=== PATIENT | female | born 1985 | race African-American/Black ===

== ENCOUNTER 2017-12-27 14:51 | Emergency (ER) | payer SELFPAY ==
[~2017-12-27] VITALS: Ht 157.5 cm; Wt 68.0 kg
[2017-12-27] MEDS ORDERED: HYDROCODONE/APAP 7.5MG-325MG 1 EA TAB PO PRN (15:15)
[2017-12-27] MEDS ORDERED: CYCLOBENZAPRINE HCL 10 MG TAB PO ONE (15:15)
[2017-12-27 16:00] VITALS: BP 145/107
== END 2017-12-27 16:48 | disposition home or self-care (01) ==
LOC: ER 14:51
DX: M54.5 Low back pain (principal); S39.012A Strain of muscle, fascia and tendon of lower back, initial encounter; I10 Essential (primary) hypertension; D64.9 Anemia, unspecified
CPT/HCPCS: 99283

== ENCOUNTER 2018-08-15 19:07 | Emergency (ER) | payer SELFPAY ==
[~2018-08-15] VITALS: Ht 157.5 cm; Wt 68.0 kg
--- OUTSIDE RECORDS SUMMARY | 2018-08-23 12:09 | XMS REPORT | Summary of Care ---
Author Author LEO PROCTOR M.D. Organization Unknown Address Unknown Phone Unavailable Care Team Providers Care Reports Analyst Name Role Phone LEO PROCTOR M.D. Unavailable Unavailable Unavailable Unavailable Functional Status Name Dates Details Functional status health issues are not documented Status: Name Dates Details Cognitive status health issues are not documented Status: Problems Name Dates Details (V22.2, Z34.90) Status: Active Heart murmur (785.2, R01.1) Status: Active Encounter for supervision of normal (V22.1, Z34.90) Status: Active Urinary tract infection (599.0, N39.0) Status: Active Anemia (285.9, D64.9) Status: Active Medications Name Dates Details Nitrofurantoin Macrocrystal 100 MG Oral Capsule TAKE 1 CAPSULE EVERY 12 HOURS DAILY. Quantity: 14 HITESH M.D., LEO * Start : 11-Aug-2018 Active Vitafol Gummies 3.33-0.333-34.8 MG Oral Tablet Chewable Take as instructed on bottle * Quantity: 90 Refills: 3 HITESH M.D., LEO * Start : 11-Aug-2018 Active Diclegis 10-10 MG Oral Tablet Delayed Release Take 1 tablet daily before bedtime; if necessary, you can take 1 tablet twice pe day, 1 in the morning, 1 at night * Quantity: 30 Refills: 1 HITESH M.D., LEO * Start : 11-Aug-2018 Active Ferralet 90 90-1 MG Oral Tablet TAKE 1 TABLET ONCE DAILY * Quantity: 30 Refills: 3 HITESH M.D., LEO * Start : 11-Aug-2018 Active Allergies and Adverse Reactions Name Dates Details Ibuprofen TABS (Allergy) Status: Active Procedures Procedure Dates Details ECG-12 Lead Date: 10-Aug-2018 . [facility] - Affirm VPIII (BV Panel) Date: 10-Aug-2018 [H] Hemoglobin Electrophoresis and Interpretation Date: 10-Aug-2018 [QH] [id number] DEHYDROGENASE, QUANT. Date: 10-Aug-2018 [[facility]] CULTURE, URINE, ROUTINE Date: 10-Aug-2018 . [facility] - PAP Date: 10-Aug-2018 Immunization Name Dates Details Immunizations not documented Social History Name Dates Details - Status: Name Dates Details Never smoker Vital Signs Date Test Result Details 10-Aug-20189:38 BP Systolic 116 mm[Hg] Status: BP Diastolic 77 mm[Hg] Status: Height 62 in Status: Weight 148.6 lb Status: Body Mass Index Calculated 27.18 kg/m2 Status: Body Surface Area Calculated 1.68 m2 Status: Heart Rate 102 /min Status: Results Date Description Value Details [id number] [QL] URINALYSIS, COMPLETE UA Turbidity Slight (Abnormal) Range: Clear UA Spec Grav 1.013 Range: <=1.030 UA pH 5.0 Range: 5.0-8.0 UA Protein Negative mg/dl Range: Negative UA Glucose Negative mg/dl Range: Negative UA Ketones Negative mg/dl Range: Negative UA Bili Negative Range: Negative UA Blood Negative Range: Negative UROBILINOGEN 4.0 mg/dl (Above high threshold) Range: 0.1-1.0 UA Nitrite Positive (Abnormal) Range: Negative UA Leuk Est Negative Range: Negative UA WBC 3 {/HPF} Range: 0-5 UA Bacteria Many {/HPF} (Abnormal) Range: None Seen UA Mucus Moderate {/LPF} (Abnormal) Range: None Seen UA Sq Epi Occasional {/LPF} Range: Few UA Color Didi [id number] [H] Obstetrics Panel (includes CBCw/Diff,RPR, HbsAg,RubIgG,Type and Screen) WBC 7.8 {K/CMM} Range: 3.7-10.4 RBC 3.62 {M/CMM} (Below low threshold) Range: 4.20-5.40 Hgb 10.9 g/dl (Below low threshold) Range: 12.0-16.0 Hct 31.9 % (Below low threshold) Range: 36.0-48.0 MCV 87.9 fL Range: 80.0-98.0 MCH 30.0 pg Range: 27.0-31.0 MCHC 34.1 g/dl Range: 32.0-36.0 RDW 15.6 % (Above high threshold) Range: 11.5-14.5 Platelet 226 {K/CMM} Range: 133-450 MPV 9.8 fL Range: 7.4-10.4 Segs 55.9 % Range: 45.0-75.0 Monocytes 5.6 % Range: 2.0-12.0 Lymphocytes 37.1 % Range: 20.0-40.0 Eosinophils 1.0 % Range: 0.0-4.0 Basophils 0.4 % Range: 0.0-1.0 Segs-Bands # 4.4 {K/CMM} Range: 1.5-8.1 Lymphocytes # 2.9 {K/CMM} Range: 1.0-5.5 Monocytes # 0.4 {K/CMM} Range: 0.0-0.8 Eosinophils # 0.1 {K/CMM} Range: 0.0-0.5 ABORH O POS AB Screen Negative Rubella IgG 40.2 {IU/ml} Range: >=10.0 Comments: Reference Range: Immune >=10 IU/mL Hep Bs Ag Negative Range: Negative [id number] [QH] HIV AB, HIV 1/2, EIA, WITH REFLEXES HIV Ag/Ab 4th Gen Negative Range: Negative Comments: HIV test results should be considered positive only when both the screening andthe confirmatory tests are positive. A negative confirmatory test in patientswith a positive screening test does not exclude HIV infection. If clincallywarranted, an HIV RNA quantitative test should be ordered. Plan of Care Name Dates Details Planned Observations Planned Goals not documented Planned Encounters Appointment; PHP ENGINEER, ROOM3 On: 07-Sep-2018 9:30 Appointment; LEO PROCTOR M.D. On: 07-Sep-2018 10:30 Interventions Provided Medication Changes* Diclegis 10-10 MG Oral Tablet Delayed Release - Start * Ferralet 90 90-1 MG Oral Tablet - Start * Nitrofurantoin Macrocrystal 100 MG Oral Capsule - Start * Vitafol Gummies 3.33-0.333-34.8 MG Oral Tablet Chewable - Start Instructions Name Dates Details Instructions not documented Encounters Appointment; LEO PROCTOR M.D. Encounter Diagnosis: Problem not documented On: 10-Aug-2018 9:00
--- OUTSIDE RECORDS SUMMARY | 2018-08-23 12:09 | XMS REPORT | Summary of Care ---
Author Organization Unknown Address Unknown Phone Unavailable Care Team Providers Care Alcoholic Counselor Name Role Phone [phone] PAMELLA Maldonado, Unknown PCP Unavailable Encounter BECKY Mathew(JOLIE) [id number] Date(s): 05/03/15 - 05/03/15 [facility] [address] [place] [address]- Discharge Diagnosis: IUP (intrauterine ), incidental Discharge Disposition: Home Physician Attending: Mauro Lemus MD Vital Signs Most recent to 1 2 oldest [Reference Range]: Height 160.02 cm (05/03/15 4:19 PM) Temperature Oral 98.3 DegF 98.0 DegF [96.4-99.1 DegF] (05/03/15 6:52 PM) (05/03/15 4:19 PM) Blood Pressure 111/72 mmHg 109/75 mmHg [90-140/60-90 mmHg] (05/03/15 6:52 PM) (05/03/15 4:19 PM) Respiratory Rate 18 BRMIN 17 BRMIN [14-20 BRMIN] (05/03/15 6:52 PM) (05/03/15 4:19 PM) Peripheral Pulse 67 bpm 93 bpm Rate [60-100 bpm] (05/03/15 6:52 PM) (05/03/15 4:19 PM) Weight 61.364 kg (05/03/15 4:19 PM) Body Mass Index 23.96 m2 (05/03/15 4:19 PM) Problem List Condition Effective Dates Status Health Status Informant Ectopic Resolved (Confirmed) Heart Active murmur(Confirmed) Hypotension(Confirme Active d) Sickle cell Active anemia(Confirmed) Allergies, Adverse Reactions, Alerts Substance Reaction Severity Status ibuprofen Active Medications ketOROLAC 30 mg, 1 mL, Route: IVP, Drug form: INJ, ONCE, Dosing Weight 61.364, kg, Priorit y: STAT, Start date: 05/03/15 18:26:00, Stop date: 05/03/15 18:26:00 Notes: (Same as:Toradol) IV bolus must be given >15 seconds. Give IM administration slowly and deeply into the muscle.Not for use > 4 days MEDICATION WASTE Product Size: 30 mgProduct Wasted: ___ mg Start Date: 05/03/15 Stop Date: 05/03/15 Status: Completed Saline Flush 0.9% 10 mL, Route: IVP, Drug Form: INJ, Dosing Weight 61.364, kg, PRN, PRN Line Flush , Start date: 05/03/15 17:01:00, Duration: 30 day, Stop date: 06/02/15 17:00:00 Notes: Same as: BD Posiflush Sterile Start Date: 05/03/15 Stop Date: 05/03/15 Status: Discontinued Zofran 4 mg, 2 mL, Route: IVP, Drug form: INJ, ONCE, Dosing Weight 61.364, kg, Priority : STAT, Start date: 05/03/15 18:26:00, Stop date: 05/03/15 18:26:00 Notes: (Same as: Zofran) MEDICATION WASTE Product Size: 4 mgProduct Was iman: ___ mg Start Date: 05/03/15 Stop Date: 05/03/15 Status: Completed Results BLOOD BANK RESULTS Most recent to 1 oldest [Reference Range]: ABO/Rh O POS *Unknown* (05/03/15 5:10 PM) ELECTROLYTES Most recent to 1 oldest [Reference Range]: Sodium Lvl [135-145 140 mEq/L mEq/L] (05/03/15 5:10 PM) Potassium Lvl 3.4 mEq/L [3.5-5.1 mEq/L] *LOW* (05/03/15 5:10 PM) Chloride Lvl [95-109 108 mEq/L mEq/L] (05/03/15 5:10 PM) CO2 [24-32 mEq/L] 23 mEq/L *LOW* (05/03/15 5:10 PM) AGAP [10.0-20.0 12.4 mEq/L mEq/L] (05/03/15 5:10 PM) CHEM PANEL Most recent to 1 oldest [Reference Range]: Creatinine Lvl 0.5 mg/dL [0.5-1.4 mg/dL] (05/03/15 5:10 PM) eGFR 149 mL/min/1.73m2 1 *NA* (05/03/15 5:10 PM) BUN [7-22 mg/dL] 9 mg/dL (05/03/15 5:10 PM) B/C Ratio [6-25] 18 (05/03/15 5:10 PM) Glucose Lvl [70-99 85 mg/dL 2 mg/dL] (05/03/15 5:10 PM) Total Protein 6.5 g/dL [6.4-8.4 g/dL] (05/03/15 5:10 PM) Albumin Lvl [3.5-5.0 3.0 g/dL g/dL] *LOW* (05/03/15 5:10 PM) Globulin [2.0-4.0 3.5 g/dL g/dL] (05/03/15 5:10 PM) A/G Ratio [0.7-1.6] 0.9 (05/03/15 5:10 PM) Calcium Lvl 8.6 mg/dL [8.5-10.5 mg/dL] (05/03/15 5:10 PM) ALT [0-65 unit/L] 27 unit/L (05/03/15 5:10 PM) AST [0-37 unit/L] 14 unit/L (05/03/15 5:10 PM) Alk Phos [39-136 97 unit/L unit/L] (05/03/15 5:10 PM) Bili Total [0.2-1.3 0.2 mg/dL mg/dL] (05/03/15 5:10 PM) 1Result Comment: The eGFR is calculated using the CKD-EPI formula. In most young, healthy individuals the eGFR will be >90 mL/min/1.73m2. The eGFR declines with age. An eGFR of 60-89 may be normal in some populations, particularly the elderly, for whom the CKD-EPI formula has not been extensively validated. Use of the eGFR is not recommended in the following populations: Individuals with unstable creatinine concentrations, including patients and those with serious co-morbid conditions. Patients with extremes in muscle mass or diet. The data above are obtained from the National Kidney Disease Education Program ( NKDEP) which additionally recommends that when the eGFR is used in patients with extremes of body mass index for purposes of drug dosing, the eGFR should be mul tiplied by the estimated BMI. 2Interpretive Data: Adult reference range values reflect the clinical guidelines of the [place] [employer]. ENDOCRINOLOGY Most recent to 1 oldest [Reference Range]: [place] [address] mIU/mL 3 *NA* (05/03/15 5:10 PM) 3Interpretive Data: Reference Range: Male 0 - 5 mIU/mL Non- Female 0 - 5 mIU/mL Note: hCG result should be used in conjunction with symptoms, results of other tests, and clinical impressions. Weeks of Gestation hCG (mIU/mL) 3 6 - 71 4 10-750 5 217 - 7,138 6 158 -31,795 7 3,697 - 163,563 8 32,065 - 149,571 9 63,803 - 151,410 10 46,506 - 186,977 11 27,832 - 210,612 14 13,950 - 62,530 15 12,039 - 70,971 16 9,040 - 56,451 17 8,175 - 55,868 18 8,099 - 58,176 URINE AND STOOL Most recent to 1 oldest [Reference Range]: UA Turbidity [Clear] Clear (05/03/15 5:10 PM) UA Color [Yellow] Yellow *NA* (05/03/15 5:10 PM) UA pH [5.0-8.0] 6.0 (05/03/15 5:10 PM) UA Spec Grav 1.010 [<=1.030] (05/03/15 5:10 PM) UA Glucose [Negative Negative mg/dL mg/dL] (05/03/15 5:10 PM) UA Blood [Negative] Negative (05/03/15 5:10 PM) UA Ketones [Negative Negative mg/dL mg/dL] *NA* (05/03/15 5:10 PM) UA Protein [Negative Negative mg/dL mg/dL] (05/03/15 5:10 PM) UA Urobilinogen 1.0 EU/dL [0.1-1.0 EU/dL] (05/03/15 5:10 PM) UA Bili [Negative] Negative *NA* (05/03/15 5:10 PM) UA Leuk Est Negative [Negative] (05/03/15 5:10 PM) UA Nitrite Negative [Negative] (05/03/15 5:10 PM) UA WBC [None Seen 0-2 /HPF /HPF] (05/03/15 5:10 PM) UA RBC [0-2 /HPF] 0-2 /HPF (05/03/15 5:10 PM) UA Bacteria [None None Seen Seen] (05/03/15 5:10 PM) UA Sq Epi [Few] None Seen (05/03/15 5:10 PM) UA Mucus [None Seen] None Seen (05/03/15 5:10 PM) Micro? Performed (05/03/15 5:10 PM) IMMUNOLOGY Most recent to 1 oldest [Reference Range]: CDC HIV 4th GEN Negative [Negative] (05/03/15 5:10 PM) HEMATOLOGY Most recent to 1 oldest [Reference Range]: WBC [3.7-10.4 K/CMM] 6.8 K/CMM (05/03/15 5:10 PM) RBC [4.20-5.40 3.67 M/CMM M/CMM] *LOW* (05/03/15 5:10 PM) Hgb [12.0-16.0 g/dL] 11.0 g/dL *LOW* (05/03/15 5:10 PM) Hct [36.0-48.0 %] 32.4 % *LOW* (05/03/15 5:10 PM) MCV [80.0-98.0 fL] 88.5 fL (05/03/15 5:10 PM) MCH [27.0-31.0 pg] 30.1 pg (05/03/15 5:10 PM) MCHC [32.0-36.0 34.0 g/dL g/dL] (05/03/15 5:10 PM) RDW [11.5-14.5 %] 16.3 % *HI* (05/03/15 5:10 PM) Platelet [133-450 218 K/CMM K/CMM] (05/03/15 5:10 PM) MPV [7.4-10.4 fL] 9.9 fL (05/03/15 5:10 PM) Segs [45.0-75.0 %] 63.5 % (05/03/15 5:10 PM) Lymphocytes 29.1 % [20.0-40.0 %] (05/03/15 5:10 PM) Monocytes [2.0-12.0 5.5 % %] (05/03/15 5:10 PM) Eosinophils [0.0-4.0 1.5 % %] (05/03/15 5:10 PM) Basophils [0.0-1.0 0.4 % %] (05/03/15 5:10 PM) Segs-Bands # 4.3 K/CMM [1.5-8.1 K/CMM] (05/03/15 5:10 PM) Lymphocytes # 2.0 K/CMM [1.0-5.5 K/CMM] (05/03/15 5:10 PM) Monocytes # [0.0-0.8 0.4 K/CMM K/CMM] (05/03/15 5:10 PM) Eosinophils # 0.1 K/CMM [0.0-0.5 K/CMM] (05/03/15 5:10 PM) Basophils # [0.0-0.2 0.0 K/CMM K/CMM] (05/03/15 5:10 PM) Immunizations No data available for this section Procedures No data available for this section Social History Social History Type Response Substance Abuse Use: None. Alcohol Never Smoking Status Current every day smoker; Type: Cigarettes; Tobacco use per day: 3; Exposure to Tobacco Smoke patient smokes daily; Cigarette Smoking Last 365 Days Yes; Reg Smoking Cessation Counseling Yes Assessment and Plan No data available for this section
--- OUTSIDE RECORDS SUMMARY | 2018-08-23 12:09 | XMS REPORT ---
[facility] Address Unknown Phone Unavailable Care Team Providers Care Airplane Electrician Name Role Phone Unavailable Unavailable Problems This patient has no known problems. Allergies, Adverse Reactions, Alerts This patient has no known allergies or adverse reactions. Medications This patient has no known medications.
--- OUTSIDE RECORDS SUMMARY | 2018-08-23 12:09 | XMS REPORT | Continuity of Care Document ---
Author Author [facility] Interface Address Unknown Phone Unavailable Problems Problem Status Onset Date Classification Date Reported Comments Source Discharge Diagnosis: IUP , incidental 05/03/2015 05/06/2015 [facility] LOWER ABDOMINAL PAIN Active 05/03/2015 [facility] Ectopic Resolved Problem 05/06/2015 [facility] Heart murmur Active Problem 05/06/2015 [facility] Hypotension Active Problem 05/06/2015 [facility] Sickle cell anemia Active Problem 05/06/2015 [facility] Medications Medication Details Route Status Patient Instructions Ordering Provider Order Date Source Zofran 4 mg, 2 mL, Route: IVP, Drug form: INJ, ONCE, Dosing Weight 61.364, kg, Priority: STAT, Start date: 05/03/15 18:26:00, Stop date: 05/03/15 18:26:00Notes: (Same as: Zofran) MEDICATION WASTE Product Size: 4 mg Product Wasted: ___ mg Inactive 05/03/2015 [facility] Ketorolac 30 mg, 1 mL, Route: IVP, Drug form: INJ, ONCE, Dosing Weight 61.364, kg, Priority: STAT, Start date: 05/03/15 18:26:00, Stop date: 05/03/15 18:26:00Notes: (Same as:Toradol) IV bolus must be given >15 seconds. Give IM administration slowly and deeply into the muscle. Not for use > 4 days MEDICATION WASTE Product Size: 30 mg Product Wasted: ___ mg Inactive 05/03/2015 [facility] Saline Flush 0.9% 10 mL, Route: IVP, Drug Form: INJ, Dosing Weight 61.364, kg, PRN, PRN Line Flush, Start date: 05/03/15 17:01:00, Duration: 30 day, Stop date: 06/02/15 17:00:00Notes: Same as: BD Posiflush Sterile Inactive 05/03/2015 [facility] Allergies, Adverse Reactions, Alerts Substance Category Reaction Severity Reaction type Status Date Reported Comments Source ibuprofen Assertion Drug allergy Active [facility] Immunizations Immunization Date Given Site Status Last Updated Comments Source Results Order Name Results Value Reference Range Date Interpretation Comments Source BLOOD BANK RESULTS ABO/Rh O POS 05/03/2015 [facility] ELECTROLYTES AGAP 12.4 meq/L 10.0 - 20.0 05/03/2015 [facility] ELECTROLYTES A/G Ratio 0.9 0.7 - 1.6 05/03/2015 [facility] ELECTROLYTES B/C Ratio 18 6 - 25 05/03/2015 [facility] ELECTROLYTES Globulin 3.5 g/dL 2.0 - 4.0 05/03/2015 [facility] ELECTROLYTES Alk Phos 97 unit/L 39 - 136 05/03/2015 [facility] ELECTROLYTES eGFR 149 mL/min/1.73m2 05/03/2015 1Result Comment: The eGFR is calculated using [...] from the National Kidney Disease Education Program (NKDEP) which additionally recommends that when the eGFR is used in patients with extremes of body mass index for purposes of drug dosing, the eGFR should be multiplied by the estimated BMI. [facility] ELECTROLYTES AST 14 unit/L 0 - 37 05/03/2015 [facility] ELECTROLYTES ALT 27 unit/L 0 - 65 05/03/2015 [facility] ELECTROLYTES Bili Total 0.2 mg/dL 0.2 - 1.3 05/03/2015 [facility] ELECTROLYTES Calcium Lvl 8.6 mg/dL 8.5 - 10.5 05/03/2015 [facility] ELECTROLYTES Albumin Lvl 3.0 g/dL 3.5 - 5.0 05/03/2015 [facility] ELECTROLYTES Total Protein 6.5 g/dL 6.4 - 8.4 05/03/2015 [facility] ELECTROLYTES Creatinine Lvl 0.5 mg/dL 0.5 - 1.4 05/03/2015 [facility] ELECTROLYTES Sodium Lvl 140 meq/L 135 - 145 05/03/2015 [facility] ELECTROLYTES Potassium Lvl 3.4 meq/L 3.5 - 5.1 05/03/2015 [facility] ELECTROLYTES Chloride Lvl 108 meq/L 95 - 109 05/03/2015 [facility] ELECTROLYTES Glucose Lvl 85 mg/dL 70 - 99 05/03/2015 2Interpretive Data: Adult reference range values reflect the clinical guidelines of the [place] [employer]. [facility] ELECTROLYTES BUN 9 mg/dL 7 - 22 05/03/2015 [facility] ELECTROLYTES CO2 23 meq/L 24 - 32 05/03/2015 [facility] [place] [address] mIU/mL 05/03/2015 3Interpretive Data: Reference Range: Male 0 - [...] 8,175 - 55,868 18 8,099 - 58,176 [facility] HEMATOLOGY Hct 32.4 % 36.0 - 48.0 05/03/2015 [facility] HEMATOLOGY MCV 88.5 fL 80.0 - 98.0 05/03/2015 [facility] HEMATOLOGY Hgb 11.0 g/dL 12.0 - 16.0 05/03/2015 [facility] HEMATOLOGY RBC 3.67 M/CMM 4.20 - 5.40 05/03/2015 [facility] HEMATOLOGY WBC 6.8 K/CMM 3.7 - 10.4 05/03/2015 [facility] HEMATOLOGY Platelet 218 K/CMM 133 - 450 05/03/2015 [facility] HEMATOLOGY RDW 16.3 % 11.5 - 14.5 05/03/2015 [facility] HEMATOLOGY MCHC 34.0 g/dL 32.0 - 36.0 05/03/2015 [facility] HEMATOLOGY MCH 30.1 pg 27.0 - 31.0 05/03/2015 [facility] HEMATOLOGY MPV 9.9 fL 7.4 - 10.4 05/03/2015 [facility] HEMATOLOGY Segs-Bands # 4.3 K/CMM 1.5 - 8.1 05/03/2015 [facility] HEMATOLOGY Basophils 0.4 % 0.0 - 1.0 05/03/2015 [facility] HEMATOLOGY Lymphocytes # 2.0 K/CMM 1.0 - 5.5 05/03/2015 [facility] HEMATOLOGY Monocytes # 0.4 K/CMM 0.0 - 0.8 05/03/2015 [facility] HEMATOLOGY Basophils # 0.0 K/CMM 0.0 - 0.2 05/03/2015 [facility] HEMATOLOGY Eosinophils # 0.1 K/CMM 0.0 - 0.5 05/03/2015 [facility] HEMATOLOGY Eosinophils 1.5 % 0.0 - 4.0 05/03/2015 [facility] HEMATOLOGY Monocytes 5.5 % 2.0 - 12.0 05/03/2015 [facility] HEMATOLOGY Segs 63.5 % 45.0 - 75.0 05/03/2015 [facility] HEMATOLOGY Lymphocytes 29.1 % 20.0 - 40.0 05/03/2015 [facility] IMMUNOLOGY CDC HIV 4th GEN Negative (05/03/15 5:10 PM) Negative 05/03/2015 [facility] URINE AND STOOL UA Mucus None Seen (05/03/15 5:10 PM) None Seen 05/03/2015 [facility] URINE AND STOOL UA WBC 0-2 /HPF None Seen /HPF 05/03/2015 [facility] URINE AND STOOL UA Bacteria None Seen (05/03/15 5:10 PM) None Seen 05/03/2015 [facility] URINE AND STOOL UA RBC 0-2 /HPF 0 - 2 05/03/2015 [facility] URINE AND STOOL Micro? Performed (05/03/15 5:10 PM) 05/03/2015 [facility] URINE AND STOOL UA Sq Epi None Seen (05/03/15 5:10 PM) Few 05/03/2015 [facility] URINE AND STOOL UA pH 6.0 5.0 - 8.0 05/03/2015 [facility] URINE AND STOOL UA Urobilinogen 1.0 EU/dL 0.1 - 1.0 05/03/2015 [facility] URINE AND STOOL UA Nitrite Negative (05/03/15 5:10 PM) Negative 05/03/2015 [facility] URINE AND STOOL UA Leuk Est Negative (05/03/15 5:10 PM) Negative 05/03/2015 [facility] URINE AND STOOL UA Protein Negative mg/dL Negative mg/dL 05/03/2015 [facility] URINE AND STOOL UA Bili Negative *NA* (05/03/15 5:10 PM) Negative 05/03/2015 [facility] URINE AND STOOL UA Blood Negative (05/03/15 5:10 PM) Negative 05/03/2015 [facility] URINE AND STOOL UA Glucose Negative mg/dL Negative mg/dL 05/03/2015 [facility] URINE AND STOOL UA Ketones Negative mg/dL Negative mg/dL 05/03/2015 [facility] URINE AND STOOL UA Spec Grav 1.010 <=1.030 05/03/2015 [facility] URINE AND STOOL UA Turbidity Clear (05/03/15 5:10 PM) Clear 05/03/2015 [facility] URINE AND STOOL UA Color Yellow *NA* (05/03/15 5:10 PM) Yellow 05/03/2015 [facility] age age OB ULTRASOUND -- age: HX: uterus; white discharge FINDINGS: Views of the uterus and contents reveal a single fetus in transverse lie with head to the maternal right presentation. The volume of amniotic fluid is satisfactory. The ALVARADO is 13.9 cm. The placenta is located anteriorly and is grade I. There is no evidence of placenta previa. The cervix is closed and measures 3.1 cm in length. The heart rate is approximately 153 bpm. BPD 3.9 cm 17 W 6 D HC 14.6 cm 17 W 6 D AC 12.1 cm 17 W 6 D FL 2.6 cm 18 W 0 D COMPOSITE SONOGRAPHIC AGE 18 W 0 D ESTIMATED WEIGHT 212 g ESTIMATED DATE DELIVERY (US) 10/06/2015 ESTIMATED DATE DELIVERY (LMP) 10/04/2015 The fetus is active. Growth parameters are within normal limits. A right ovary measures 2.6 x 3.1 x 2.0 cm. A left ovary measures 3.3 x 2.9 x 3.2 cm. Left ovarian cyst measures approximately 2.2 cm maximum diameter. Left ovarian Doppler within normal limits. The patient has a section defect on the anterior aspect of the lower uterine segment. IMPRESSION: Single living 18 W 0 D active fetus in transverse presentation. Previous section. SL: 12 05/03/2015 - - Read by: Perez Thomas MD Dictated Date/time: 05/03/15 17:50 Electronically Signed by: Perez Thomas MD 05/03/15 18:00 FINAL REPORT [facility] Vital Signs Vital Sign Value Date Comments Source Heart Rate 67 05/03/2015 [facility] Respitory Rate 18 05/03/2015 [facility] Temperature Oral (F) 98.3 F 05/03/2015 [facility] Systolic (mm Hg) 111 05/03/2015 [facility] Diastolic (mm Hg) 72 05/03/2015 [facility] BMI Calculated 23.96 05/03/2015 [facility] Height 160.02 cm 05/03/2015 [facility] Weight 61.364 05/03/2015 [facility] Respitory Rate 17 05/03/2015 [facility] Systolic (mm Hg) 109 05/03/2015 [facility] Diastolic (mm Hg) 75 05/03/2015 [facility] Heart Rate 93 05/03/2015 [facility] Temperature Oral (F) 98.0 F 05/03/2015 [facility] Encounters Location Location Details Encounter Type Encounter Number Reason For Visit Attending Provider ADM Date DC Date Status Source [facility] [id number] Mauro Lemus 05/03/2015 05/04/2015 [facility] Procedures Procedure Code Date Perfomer Comments Source
== END 2018-08-15 19:49 | disposition left against medical advice (07) ==
LOC: ER 19:07
DX: M54.5 Low back pain (principal)